=== PATIENT | female | born 1950 | race Caucasian/White ===

== ENCOUNTER 2017-03-03 22:04 | Emergency (ER) | payer BC ==
[~2017-03-03] VITALS: Ht 157.5 cm; Wt 50.8 kg
[2017-03-03 22:30] VITALS: BP_SYST 135
--- NOTE | 2017-03-03 22:30 | NUR ---
Patient to ER bed 8 to gown for evaluation. Side rails up. Report given to QUE Kurtz.
--- NOTE | 2017-03-03 22:41 | NUR ---
Patient to ER C/O severe pain 10/10 left hand 4th finger. Patient states that she tripped & fell and broke her fall with her left hand. Swelling and SQ hematoma to left hand base of 4th finger. ROM limitation. Patient has a gold wedding band on the mentioned finger. No other signs of injury or trauma. AAox4, unlabored breathing, no signs of acute distress.
--- NOTE | 2017-03-03 22:52 | NUR ---
ER MD Araiza at bedside for evaluation
[2017-03-03] MEDS ORDERED: HYDROcodone/ACETAMIN 5-325 MG TAB (NORCO/ VICODIN) PO ONE (23:00)
--- NOTE | 2017-03-03 23:05 | NUR ---
Patient medicated per MD orders.
--- NOTE | 2017-03-04 00:09 | NUR ---
Wedding band was cut and removed. Patient tolerated well.
--- NOTE | 2017-03-04 00:43 | NUR ---
Radiology at bedside with portable for finger Xray
--- NOTE | 2017-03-04 01:46 | NUR ---
Volar splint applied by Tessie GREY. ER MD Araiza verified. Cap refil & pulses intact.
[2017-03-04 01:59] VITALS: BP_SYST 135
--- NOTE | 2017-03-04 01:59 | NUR ---
Patient given written and verbal discharge instructions and verbalizes understanding. ER MD Araiza discussed with patient the results and treatment provided. Patient in stable condition. ID arm band removed. Rx of norco given. Patient educated on pain management and to follow up with PMD. Pain Scale 0/10. Opportunity for questions provided and answered.
== END 2017-03-04 01:59 | disposition home or self-care (01) ==
LOC: SED 22:04
DX: S62.615A Displaced fracture of proximal phalanx of left ring finger, initial encounter for closed fracture (principal); E03.9 Hypothyroidism, unspecified; W01.0XXA Fall on same level from slipping, tripping and stumbling without subsequent striking against object, initial encounter; Y93.89 Activity, other specified; Y92.89 Other specified places as the place of occurrence of the external cause; Y99.8 Other external cause status
CPT/HCPCS: 73140-TC; 99284

== ENCOUNTER 2023-02-09 09:01 | Emergency (ER) | payer BC, OTHER ==
[~2023-02-09] VITALS: Ht 157.5 cm; Wt 48.5 kg
[2023-02-09 09:01] VITALS: BP_SYST 152
[2023-02-09] MEDS ORDERED: TRAM50TA2 PO (09:40)
[2023-02-09] MEDS ORDERED: IBUP-1969 PO (09:40)
[2023-02-09] MEDS ORDERED: MORPHINE 4 MG INJ. 4 MG/ML VIAL IM ONE (09:45)
[2023-02-09 10:29] VITALS: BP_SYST 135
== END 2023-02-09 10:32 | disposition home or self-care (01) ==
LOC: SED 09:01
DX: S52.532A Colles' fracture of left radius, initial encounter for closed fracture (principal); Z79.899 Other long term (current) drug therapy; W01.0XXA Fall on same level from slipping, tripping and stumbling without subsequent striking against object, initial encounter; Y93.89 Activity, other specified; Y92.89 Other specified places as the place of occurrence of the external cause; Y99.8 Other external cause status
CPT/HCPCS: 99283; 73110; 29125; 96372; J2270